=== PATIENT | female | born 1990 | race Caucasian/White ===

== ENCOUNTER 2019-08-09 14:15 | Emergency (ER) | payer SELFPAY ==
--- NOTE | 2019-08-09 14:31 | Emergency Department Record ---
History of Present Illness - General Chief complaint: Dental Stated complaint: DENTAL PAIN Time Seen by Provider: 08/09/19 14:17 Source: Patient Mode of Arrival: Ambulatory Limitations: No limitations - History of Present Illness Initial comments: The patient is here due to L upper dental pain for a week. She broke a tooth and it has been painful since. The patient denies any other issues. MD complaint: Tooth pain Onset/Timin -: Week(s) Location: Tooth # Severity: Moderate Severity scale (1-10): 8 Quality: Aching Consistency: Constant Improves with: None Worsens with: None - Related Data Previous Rx's Medication Instructions Recorded Amoxicillin 500 mg PO TID #21 capsule 08/09/19 Allergies Allergy/AdvReac Type Severity Reaction Status Date / Time cefaclor [From Ceclor] Allergy HIVES Verified 08/09/19 14:23 clindamycin Allergy RASH Verified 08/09/19 14:23 codeine Allergy ANAPHYLAXIS Verified 08/09/19 14:23 hydroxyzine [From Vistaril] Allergy ANAPHYLAXIS Verified 08/09/19 14:23 sulfamethoxazole Allergy HIVES Verified 08/09/19 14:23 [From Bactrim] trimethoprim [From Bactrim] Allergy HIVES Verified 08/09/19 14:23 Travel Screening - Travel/Exposure Within Last 30 Days Have you traveled within the last 30 days?: No Review of Systems Constitutional: Denies: Chills, Fever Eyes: Denies: Eye discharge ENT: Denies: Congestion Respiratory: Denies: Cough, Dyspnea Past Medical History - SOCIAL HISTORY Smoking Status: Never smoker Alcohol Use: None Drug Use: None - RESPIRATORY Hx Respiratory Disorders: No - CARDIOVASCULAR Hx Cardio Disorders: Yes Comment:: tachycardia - NEURO Hx Neuro Disorders: Yes 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 There is no swelling at the gum line.). negative: Normal inspection Throat exam: Normal inspection. negative: Tonsillar erythema, Tonsillomegaly - Neck Neck exam: Normal inspection, Full ROM. negative: Tenderness - Respiratory Respiratory exam: Normal lung sounds bilaterally. negative: Respiratory distress - Cardiovascular Cardiovascular Exam: Regular rate, Normal heart sounds, Tachycardia - Extremities Extremities exam: Normal inspection, Full ROM, Normal capillary refill. negative: Tenderness Course Vital Signs 08/09/19 14:20 Temperature 97.9 F Pulse Rate 119 H Respiratory 20 Rate Blood Pressure 138/81 Pulse Ox 98 - Reevaluation(s) Reevaluation #1: Per the patient's request a dental apical block was placed with 1.5 cc's of a 50:50 mixture of Lido1% with Sensoricaine. There were no complications. 08/09/19 14:38 Disposition Disposition: Discharge Clinical Impression: Pain, dental Disposition: Home, Self-Care Condition: (2) Stable Instructions: Toothache (ED) Additional Instructions: Please continue your home pain medicines and take the Amox. as directed. Please see the Dentist next week as planned. Prescriptions: Amoxicillin 500 mg PO TID #21 capsule Forms: Patient Portal Access Time of Disposition: 14:40 Quality - Quality Measures Quality Measures: N/A - Blood Pressure Screening View Details: Yes Does Patient Have Any of the Following: No Blood Pressure Classification: Pre-Hypertensive BP Reading Systolic Measurement: 138 Diastolic Measurement: 81 Screening for High Blood Pressure: < Pre-Hypertensive BP, F/U Documented > [G8950] Pre-Hypertensive Follow-up Interventions: Referral to alternative/primary care provider.
== END 2019-08-09 15:02 | disposition home or self-care (01) ==
LOC: ER 14:15
DX: K08.89 Other specified disorders of teeth and supporting structures (principal)
CPT/HCPCS: 64400; 99283